=== PATIENT | male | born 1935 | race Caucasian/White ===

== ENCOUNTER 2021-12-21 18:29 | Inpatient (IN) | payer OTHER ==
[~2021-12-21] VITALS: Ht 172.7 cm; Wt 90.7 kg
[2021-12-21 19:24] LABS: Hematocrit 44.8 % (37.0-53.0); Hemoglobin 15.1 g/dL (13.5-17.5); Mean Corpuscular HGB 32.4 pg (26.0-34.0); Mean Corpuscular HGB Conc 33.7 g/dL (31.5-36.5); Mean Corpuscular Volume 96 fL (80-100); Mean Platelet Volume 9.7 fL (9.1-12.4); Platelet Count 234 K/mm3 (150-400); RDW Coefficient Variation 12.6 % (11.7-14.2); RDW Standard Deviation 44.4 fL (35.1-46.3); Red Blood Cell Count 4.66 M/mm3 (4.30-5.90); White Blood Cell Count 23.12 K/mm3 (4.00-11.30)
[2021-12-21 19:45] LABS: Alanine Aminotransfer (ALT/SGP 49 U/L (12-78); Albumin, Blood 3.6 g/dL (3.4-5.0); Alk Phos 179 U/L (50-136); Anion Gap 4 mmol/L (6-16); Aspartate Aminotrans (AST/SGOT 39 U/L (12-37); Bilirubin, Total 1.7 mg/dL (0.1-1.0); Blood Urea Nitrogen 22 mg/dL (8-24); Bun/Creatinine Ratio 22.1 (12.0-20.0); CO2, Blood 27 mmol/L (21-32); Calcium, Blood 9.5 mg/dL (8.5-10.1); Chloride, Blood 103 mmol/L (98-108); Globulin, Blood 3.6 g/dL (2.2-4.0); Glomerular Filtration Rate >60 (60-); Glucose, Blood 124 mg/dL (70-99); Potassium, Blood 4.6 mmol/L (3.5-5.5); Sodium, Blood 134 mmol/L (136-145); Total Protein, Blood 7.2 g/dL (6.4-8.2)
[2021-12-21 21:24] LABS: Source, Urine Clean Catch
[2021-12-21 21:25] LABS: BASOPHILS PERCENT MAN 0 % (0-2); EOSINOPHILS ABSOLUTE MAN 0.46 K/mm3 (0.00-0.68); EOSINOPHILS PERCENT MAN 2 % (0-6); LYMPHOCYTES % ATYPICAL MANUAL 4 % (0-0); LYMPHOCYTES ABSOLUTE MAN 12.71 K/mm3 (0.84-5.20); LYMPHOCYTES PERCENT MAN 51 % (21-46); MONOCYTES ABSOLUTE MAN 1.61 K/mm3 (0.16-1.47); MONOCYTES PERCENT MAN 7 % (4-13); NEUTROPHILS ABSOLUTE MAN 8.32 K/mm3 (1.96-9.15); SEG NEUTROPHILS PERCENT MAN 36 % (41-73); TOTAL CELLS COUNTED 100
[2021-12-21 21:26] LABS: Appearance, Urine Clear (Clear); Bilirubin, Urine Neg (Neg); Blood, Urine 1+ (Neg); Glucose Qualitative, Urine Neg (Neg); Ketones, Urine 2+ (Neg); Leukocyte Esterase, Urine Neg (Neg); Nitrite, Urine Neg (Neg); Protein, Urine 2+ (Neg); Urobilinogen, Urine 1+ (Normal)
[2021-12-21 21:53] LABS: Influenza A, PCR NEGATIVE (NEGATIVE); Influenza B, PCR NEGATIVE (NEGATIVE); Resp Syncytial Virus, PCR NEGATIVE (NEGATIVE); SARS-Cov-2 (COVID-19) PCR, MMC NEGATIVE (NEGATIVE)
[2021-12-21 22:06] LABS: Color, Urine Yellow (P-Yellow)
[2021-12-21 22:07] LABS: Bacteria Rare /hpf; Squamous Epithelial Cells Rare /hpf (Few); White Blood Cells, Urine 0-2 /hpf (0-5)
[2021-12-22] MEDS ORDERED: LOSARTAN-HCTZ1 EAC3 PO (01:37)
--- NOTE | 2021-12-22 02:24 | NUR ---
ADMISSION: PATIENT ARRIVED TO FLOOR @ 0115, ABLE TO TRANSFER FROM [facility] TO BED. SBA TO BR. STEADY AMBULATION, BUT HAS GENERAL WEAKNESS. ANSWERED ALL QUESTIONS APPROPRIATELY. TELE: SR/84. COVID - WAS GOING TO GO HOME, BUT HAD CX PAIN, TACHYCARDIA IN ED--RESOLVED. BED IS IN LOWEST POSITION, ALARM IS SET AND CALL LIGHT IS WITHIN REACH.
--- NOTE | 2021-12-22 06:08 | NUR ---
SHIFT SUMMARY: PT IS A/OX4. SINCE HIS ADMIT AT 0115, HE WAS ABLE TO REST AND DID NOT HAVE ANY COMPLAINTS. D/T HIS GENERAL WEAKNESS, WE AGREED TO KEEP AN ALARM SET OTHEWISE HE IS STEADY ON HIS FEET. NO OTHER CHANGES TO REPORT AND WE'LL CONTINUE TO MONITOR.
[2021-12-22 08:56] LABS: Hematocrit 40.6 % (37.0-53.0); Hemoglobin 13.6 g/dL (13.5-17.5); Mean Corpuscular HGB 32.5 pg (26.0-34.0); Mean Corpuscular HGB Conc 33.5 g/dL (31.5-36.5); Mean Corpuscular Volume 97 fL (80-100); Mean Platelet Volume 10.4 fL (9.1-12.4); Platelet Count 214 K/mm3 (150-400); RDW Coefficient Variation 12.6 % (11.7-14.2); RDW Standard Deviation 45.1 fL (35.1-46.3); Red Blood Cell Count 4.19 M/mm3 (4.30-5.90); White Blood Cell Count 21.01 K/mm3 (4.00-11.30)
[2021-12-22 09:18] LABS: Alanine Aminotransfer (ALT/SGP 37 U/L (12-78); Albumin/Globulin Ratio 0.9 (0.8-1.8); Alk Phos 163 U/L (50-136); Anion Gap 7 mmol/L (6-16); Aspartate Aminotrans (AST/SGOT 26 U/L (12-37); Bilirubin, Total 1.1 mg/dL (0.1-1.0); Blood Urea Nitrogen 20 mg/dL (8-24); Bun/Creatinine Ratio 19.4 (12.0-20.0); CO2, Blood 26 mmol/L (21-32); Calcium, Blood 8.8 mg/dL (8.5-10.1); Chloride, Blood 106 mmol/L (98-108); Creatinine, Blood 1.03 mg/dL (0.60-1.20); Globulin, Blood 3.5 g/dL (2.2-4.0); Glomerular Filtration Rate >60 (60-); Glucose, Blood 111 mg/dL (70-99); Potassium, Blood 3.8 mmol/L (3.5-5.5); Sodium, Blood 139 mmol/L (136-145); Total Protein, Blood 6.5 g/dL (6.4-8.2)
[2021-12-22 09:26] LABS: CPK Creatine Kinase 41 U/L (39-308)
[2021-12-22 10:28] LABS: BAND PERCENT MAN 3 % (0-8); BASOPHILS ABSOLUTE MAN 0.21 K/mm3 (0.00-0.23); BASOPHILS PERCENT MAN 1 % (0-2); EOSINOPHILS ABSOLUTE MAN 0.21 K/mm3 (0.00-0.68); EOSINOPHILS PERCENT MAN 1 % (0-6); LYMPHOCYTES ABSOLUTE MAN 10.71 K/mm3 (0.84-5.20); LYMPHOCYTES PERCENT MAN 51 % (21-46); MONOCYTES ABSOLUTE MAN 1.68 K/mm3 (0.16-1.47); MONOCYTES PERCENT MAN 8 % (4-13); NEUTROPHILS ABSOLUTE MAN 8.19 K/mm3 (1.96-9.15); SEG NEUTROPHILS PERCENT MAN 36 % (41-73); TOTAL CELLS COUNTED 100
--- NOTE | 2021-12-22 10:51 | NUR ---
Echocardiogram completed.
[2021-12-22 15:42] LABS: CPK Creatine Kinase 38 U/L (39-308)
--- NOTE | 2021-12-22 17:31 | NUR ---
DAY SHIFT SUMMARY 86 YR OLD MALE ADMITTED FOR PNEUMONIA. NO ACUTE CHANGES THIS SHIFT. PT IS RA, INDEPENDENT IN ROOM, A/O X4. CALL LIGHT IN REACH AND ABLE TO CALL APPROPRIATELY.
--- NOTE | 2021-12-23 06:22 | NUR ---
SHIFT SUMMARY: PT IS A/OX4. INDEPENDENT IN ROOM AND USES HIS CALL LIGHT FOR NEEDS. TELE: SR/78. IV ABX (AZITHRO/ROCEPHIN) WERE CHANGED TO PO LEVAQUIN. PT DID NOT HAVE ANY COMPLAINTS THIS SHIFT. WE'LL CONTINUE TO MONITOR THE REMAINDER OF THIS SHIFT.
[2021-12-23 08:18] LABS: Hematocrit 40.1 % (37.0-53.0); Hemoglobin 13.5 g/dL (13.5-17.5); Mean Corpuscular HGB 32.4 pg (26.0-34.0); Mean Corpuscular HGB Conc 33.7 g/dL (31.5-36.5); Mean Corpuscular Volume 96 fL (80-100); Mean Platelet Volume 9.6 fL (9.1-12.4); Platelet Count 220 K/mm3 (150-400); RDW Coefficient Variation 12.6 % (11.7-14.2); RDW Standard Deviation 44.4 fL (35.1-46.3); Red Blood Cell Count 4.17 M/mm3 (4.30-5.90); White Blood Cell Count 23.07 K/mm3 (4.00-11.30)
[2021-12-23 09:27] LABS: BAND PERCENT MAN 1 % (0-8); BASOPHILS PERCENT MAN 0 % (0-2); EOSINOPHILS PERCENT MAN 0 % (0-6); LYMPHOCYTES ABSOLUTE MAN 10.38 K/mm3 (0.84-5.20); LYMPHOCYTES PERCENT MAN 45 % (21-46); MONOCYTES PERCENT MAN 10 % (4-13); NEUTROPHILS ABSOLUTE MAN 10.38 K/mm3 (1.96-9.15); SEG NEUTROPHILS PERCENT MAN 44 % (41-73); TOTAL CELLS COUNTED 100
[2021-12-23] MEDS ORDERED: ASPI325 PO (11:29)
[2021-12-23] MEDS ORDERED: LEVOFLOXACIN750 MG PO (11:29)
[2021-12-23] MEDS ORDERED: VISBIOME 112.51 EACH PO (11:30)
[2021-12-23] MEDS ORDERED: ALBU8HFA2 INH (11:31)
[2021-12-23] MEDS ORDERED: GUAI600T33 PO (11:31)
--- NOTE | 2021-12-23 16:02 | NUR ---
DISCHARGE SUMMARY PT DISCHARGED HOME WITH . IV AND TELE REMOVED PRIOR TO DISCHARGE. DISCHARGE EDUCATION REVIEWED WITH AND SIGNED BY PATIENT. MEDS FAXED INTO PHARMACY. PT TRANSPORTED VIA WHEELCHAIR DOWNSTAIRS TO VEHICLE WITH AND ALONG WITH PERSONAL BELONGINGS.
== END 2021-12-23 13:15 | disposition home or self-care (01) | DRG 871 ==
LOC: ER 18:29 → MEDS 18:30
PROVIDERS: Internal Medicine; Physician Assistant; ADMIT Internal Medicine
DX: A41.9 Sepsis, unspecified organism (principal); J18.9 Pneumonia, unspecified organism; I20.0 Unstable angina; C91.10 Chronic lymphocytic leukemia of B-cell type not having achieved remission; Z20.822 Contact with and (suspected) exposure to COVID-19; I10 Essential (primary) hypertension; Z66 Do not resuscitate; R07.9 Chest pain, unspecified; R53.1 Weakness
CPT/HCPCS: 0241U; 36415; 71045; 80053; 81001; 82550; 83605; 83880; 84484; 85025; 87070; 87205; 93005; 93010; 93306; 94760; 96365; 96366; 96375; 99285-25; A9270; G0378; J0456; J0696; J1200; J1650; J7030; J7050

== ENCOUNTER 2022-04-29 18:25 | Observation (INO) | payer OTHER ==
[~2022-04-29] VITALS: Ht 177.8 cm; Wt 88.5 kg
[~2022-04-29 18:25] MED LIST: ALBU8HFA2 INH; ASPI325 PO; GUAI600T33 PO; LEVOFLOXACIN750 MG PO; LOSARTAN-HCTZ1 EAC3 PO; VISBIOME 112.51 EACH PO
[2022-04-29 19:08] LABS: Hematocrit 44.3 % (37.0-53.0); Hemoglobin 15.3 g/dL (13.5-17.5); Mean Corpuscular HGB 32.6 pg (26.0-34.0); Mean Corpuscular HGB Conc 34.5 g/dL (31.5-36.5); Mean Corpuscular Volume 94 fL (80-100); Mean Platelet Volume 9.5 fL (9.1-12.4); NRBC ABSOLUTE 0.03 K/mm3 (0.00-0.02); NRBC Auto 0.1 /100 WBC (0.0-0.2); Platelet Count 179 K/mm3 (150-400); RDW Coefficient Variation 12.4 % (11.7-14.2); RDW Standard Deviation 43.1 fL (35.1-46.3); White Blood Cell Count 23.63 K/mm3 (4.00-11.30)
[2022-04-29 19:21] LABS: Albumin, Blood 3.9 g/dL (3.4-5.0); Albumin/Globulin Ratio 1.4 (0.8-1.8); Bilirubin, Total 0.5 mg/dL (0.1-1.0); Bun/Creatinine Ratio 21.6 (12.0-20.0); Calcium, Blood 9.4 mg/dL (8.5-10.1); Creatinine, Blood 1.02 mg/dL (0.60-1.20); Globulin, Blood 2.7 g/dL (2.2-4.0); Potassium, Blood 4.4 mmol/L (3.5-5.5); Total Protein, Blood 6.6 g/dL (6.4-8.2)
[2022-04-29 20:14] LABS: BASOPHILS PERCENT MAN 0 % (0-2); EOSINOPHILS ABSOLUTE MAN 0.23 K/mm3 (0.00-0.68); EOSINOPHILS PERCENT MAN 1 % (0-6); LYMPHOCYTES PERCENT MAN 54 % (21-46); MONOCYTES ABSOLUTE MAN 0.94 K/mm3 (0.16-1.47); MONOCYTES PERCENT MAN 4 % (4-13); NEUTROPHILS ABSOLUTE MAN 3.54 K/mm3 (1.96-9.15); SEG NEUTROPHILS PERCENT MAN 15 % (41-73); TOTAL CELLS COUNTED 100
[2022-04-29 20:17] LABS: LYMPHOCYTES % ATYPICAL MANUAL 26 % (0-0)
--- NOTE | 2022-04-30 05:59 | NUR ---
NOC SHIFT SUMMARY PT ARRIVED TO FLOOR FROM ED AND MOVED TO BED INDEPENDENTLY. VS OBTAINED, WNL. LAC IV FLUSHED AND PATENT. NO COMPLAINTS OF PAIN OR DISCOMFORT. ORIENTED X4, CALM AND COOPERATIVE. TELEMETRY CONFIRMED W/RE ETCHER. SR OVERNIGHT. PT UP SBA TO BATHROOM. VOIDING WITHOUT DIFFICULTY. NO SIGNIFICANT EVENTS OVERNIGHT. WILL CONTINUE TO MONITOR AND PASS ON TO DAY RN
--- NOTE | 2022-04-30 08:00 | NUR ---
PT PLEASANT COOP, A/O X3 DENIES CHEST PAIN, PRESSURE, SOB. ON R/A. H/R REG, NO MURMUR NOTED. PER TELE. NSR AT 66, LUNGS CLEAR, RESP EASY, UNLABORED. ON R.A. BT X4 LAST BM YEST PER PT. VOIDS INDEPENDANT TO SBA TO BATHROOM. BED IN LOW POSITION, CLL LITE IN REACH, CALLS APPROP
[2022-04-30] MEDS ORDERED: ASPI81CH PO (14:16)
[2022-04-30] MEDS ORDERED: PANT40 PO (14:17)
--- NOTE | 2022-04-30 15:06 | NUR ---
discharge reviewed by pt and spouse. iv pulled by aide. tele removed by aide. pt verbalized understanding meds and inst. pt wheeled to door by aide at 1506
== END 2022-04-30 15:06 | disposition home or self-care (01) ==
LOC: ER 18:25 → MEDS 18:26
PROVIDERS: Emergency Medicine; ADMIT Internal Medicine
DX: R07.89 Other chest pain (principal); C91.10 Chronic lymphocytic leukemia of B-cell type not having achieved remission; I10 Essential (primary) hypertension; Z82.49 Family history of ischemic heart disease and other diseases of the circulatory system; Z86.73 Personal history of transient ischemic attack (TIA), and cerebral infarction without residual deficits; Z88.0 Allergy status to penicillin; Z88.5 Allergy status to narcotic agent
CPT/HCPCS: 36415; 71046; 78452; 80053; 83880; 84484; 85025; 85379; 93005; 93010; 93017; 93308; 93321; 96372; 99285-25; A9500; G0378; J0706; J1650; J2785

== ENCOUNTER → 2023-01-12 | Outpatient (CLI) | payer OTHER ==
[~2023-01-12] MED LIST changes: +ASPI81CH PO; +PANT40 PO
== END ==
LOC: LAB SHORT 07:51 → PLD 07:51
DX: D23.62 Other benign neoplasm of skin of left upper limb, including shoulder (principal)
CPT/HCPCS: 88305

== ENCOUNTER → 2023-08-11 | Outpatient (CLI) | payer OTHER | END | disposition home or self-care (01) | LOC: LAB SHORT 12:21 → LAB 12:21 | DX: K55.019 Acute (reversible) ischemia of small intestine, extent unspecified (principal) | CPT/HCPCS: 83605 ==

== ENCOUNTER 2024-01-12 10:10 | Inpatient (IN) | payer OTHER ==
[~2024-01-12] VITALS: Ht 175.3 cm; Wt 89.0 kg
[2024-01-12] VITALS (10 sets, daily range): BP systolic 110–138; BP diastolic 67–90
[~2024-01-12 10:10] MED LIST changes: -ATOR40TA PO; -Aspir 8181 MG PO; -CLOP75 PO; -NITR.4SL SL
[2024-01-12] MEDS ORDERED: Aspirin 325 MG Tab PO ONE (10:45)
[2024-01-12] MEDS ORDERED: Nitroglycerin Patch 0.4 MG / HR TOP ONE (10:45)
[2024-01-12] MEDS ORDERED: NS 1,000 ML IV SCH (11:35)
[2024-01-12] MEDS ORDERED: Aspirin 81 MG Chew PO ONE (11:35)
[2024-01-12] MEDS ORDERED: Nitroglycerin 0.4 MG SUBL SL PRN (11:35)
[2024-01-12] MEDS ORDERED: HydrALAZINE HCl 20 MG / ML 1ML Vial IV PRN (11:35)
[2024-01-12 11:40] LABS: Anti-Xa UFH, PHA Monitoring <0.10 IU/mL; International Normalized Ratio 0.97; Prothrombin Time Results 10.4 Sec (9.7-11.5)
[2024-01-12] MEDS ORDERED: Dose Adjust by Pharmacy XX STA (11:47)
[2024-01-12] MEDS ORDERED: Heparin Sodium 5000 Units/ML 1ML MDV IV ONE (11:50)
[2024-01-12] MEDS ORDERED: Heparin Sodium,Porcine/0.5 NS 500 ML IV SCH (11:50)
[2024-01-12] MEDS ORDERED: Heparin Sodium 1000 Units/ML 10ML MDV ONE (13:03)
[2024-01-12] MEDS ORDERED: NS 1,000 ML IV ONE ×2 (13:04→13:06)
[2024-01-12] MEDS ORDERED: Nitroglycerin 2 MG/20 ML BTL ONE (13:04)
[2024-01-12] MEDS ORDERED: NS 250 ML IV ONE (13:04)
[2024-01-12] MEDS ORDERED: NiCARdipine HCL 1,000 MCG/5 ML SYR ONE (13:04)
[2024-01-12] MEDS ORDERED: FentaNYL Citrate 50 MCG/ML 2 ML Injection ONE ×2 (13:05→14:52)
[2024-01-12] MEDS ORDERED: Midazolam HCl 1MG / ML 2ML Vial ONE (13:06)
[2024-01-12] MEDS ORDERED: ASPI325 PO (13:11)
--- NOTE | 2024-01-12 14:11 | NUR ---
PT ARRIVED TO U 06 ABOUT 1300. HE WAS TAKEN TO THE [employer] ABOUT 1330. VS WERE STABLE ON TX TO THE ROOM, HEPARIN GTT WAS STOPPED FOR THE PROCEDURE, AND HIS WAS AT THE BEDSIDE. ON TELE THE PT WAS SR 60'S-70'S W/ PAC, PVCS, AND FHB. HIS ANGINA AND SOB WERE ABSENT. AWAITING FOR PT TO RETURN BACK TO THE ROOM FROM THE [employer] FOR FURTHER ASSESSMENT.
[2024-01-12] MEDS ORDERED: Atropine Sulfate 0.1 MG/ML 10ML SYR ONE (14:46)
[2024-01-12] MEDS ORDERED: Clopidogrel Bisulfate 300 MG Cap ONE (15:00)
--- NOTE | 2024-01-12 17:20 | NUR ---
SHIFT SUMMARY PT IS A NEW ADMIT AND HAD AN ANGIO TODAY. HE RECIEVED ONE STENT TO THE RCA. THEY ACCESSED THE PT'S RIGHT WRIST AND RIGHT GROIN. SITE ARE W/O HEMATOMA, BLEEDING, N/T, AND DRESSINGS/TRBAND ARE INTACT. PER DR. DALEY THE PT NEEDS TO LAY FLAT UNTIL 1930. THE TR BAND CAN START TO BE RECOVERED AT 1730. THE PT'S VITAL SIGNS REMAIN STABLE. HE IS ON RA AND SP02 >93%. ON TELE HE IS SR 60'S W/ PAC'S, PVC'S, AND A FHB. HIS , DAUGHTER, AND SON IN LAW WERE AT BEDSIDE AND HAVE BEEN UPDATED ON CARE. SEE NOTES FOR MORE UPDATES.
[2024-01-12] MEDS ORDERED: Atorvastatin 40 MG Tab PO SCH (21:00)
[2024-01-13 00:07] VITALS: BP 118/67
[2024-01-13 03:56] VITALS: BP 118/69
[2024-01-13 04:24] LABS: Hematocrit 39.5 % (37.0-53.0); Hemoglobin 13.1 g/dL (13.5-17.5); Mean Corpuscular HGB 33.6 pg (26.0-34.0); Mean Corpuscular HGB Conc 33.2 g/dL (31.5-36.5); Mean Corpuscular Volume 101 fL (80-100); Mean Platelet Volume 9.8 fL (9.1-12.4); Platelet Count 140 K/mm3 (150-400); RDW Coefficient Variation 13.5 % (11.7-14.2); RDW Standard Deviation 49.7 fL (35.1-46.3); White Blood Cell Count 32.12 K/mm3 (4.00-11.30)
[2024-01-13 04:56] LABS: Alanine Aminotransfer (ALT/SGP 22 U/L (12-78); Albumin, Blood 3.4 g/dL (3.4-5.0); Albumin/Globulin Ratio 1.5 (0.8-1.8); Alk Phos 109 U/L (50-136); Anion Gap 8 mmol/L (3-11); Aspartate Aminotrans (AST/SGOT 25 U/L (12-37); Bilirubin, Total 0.6 mg/dL (0.1-1.0); Blood Urea Nitrogen 18 mg/dL (8-24); Bun/Creatinine Ratio 18.2 (12.0-20.0); CHOL/HDL RATIO 4.4; CO2, Blood 27 mmol/L (21-32); Calcium, Blood 8.7 mg/dL (8.5-10.1); Chloride, Blood 109 mmol/L (98-108); Cholesterol 132 mg/dL (50-200); Creatinine, Blood 0.99 mg/dL (0.60-1.20); Globulin, Blood 2.2 g/dL (2.2-4.0); Glomerular Filtration Rate 74 (60-); Glucose, Blood 127 mg/dL (70-99); HDL Cholesterol 30 mg/dL (>39); LDL/HDL RATIO 2.4; Low Density Lipoprotein Chol 73 mg/dL (0-110); Potassium, Blood 3.9 mmol/L (3.5-5.5); Sodium, Blood 140 mmol/L (136-145); Total Protein, Blood 5.6 g/dL (6.4-8.2); Triglycerides 146 mg/dL (30-160); Very Low Density Lipoprot Chol 29 mg/dL (6-32)
--- NOTE | 2024-01-13 05:40 | NUR ---
SHIFT SUMMARY ASSUMED CARE OF PT AT 1900. PT ALERT & ORIENTED x4, COOPERATIVE WITH CARES, CALL LIGHT APPROPRIATE. TR BAND RECOVERED AT 2159, PT TOLERATED WELL, SITE IS WITHOUT COMPLICATION. PT REMAINS HEMODYNAMICALLY STABLE. DENIES CHEST PAIN, PALPITATIONS THIS SHIFT. SP02 > 90% ON RA. AFEBRILE THIS SHIFT. EKG THIS AM IS IN PT CHART. NO ACUTE EVENTS OVERNIGHT.
[2024-01-13 06:12] LABS: BASOPHILS PERCENT MAN 0 % (0-2); EOSINOPHILS ABSOLUTE MAN 0.96 K/mm3 (0.00-0.68); EOSINOPHILS PERCENT MAN 3 % (0-6); LYMPHOCYTES % ATYPICAL MANUAL 7 % (0-0); LYMPHOCYTES ABSOLUTE MAN 21.52 K/mm3 (0.84-5.20); LYMPHOCYTES PERCENT MAN 60 % (21-46); MONOCYTES ABSOLUTE MAN 0.96 K/mm3 (0.16-1.47); MONOCYTES PERCENT MAN 3 % (4-13); NEUTROPHILS ABSOLUTE MAN 8.67 K/mm3 (1.96-9.15); SEG NEUTROPHILS PERCENT MAN 27 % (41-73); TOTAL CELLS COUNTED 100
[2024-01-13 07:46] VITALS: BP 133/70
[2024-01-13] MEDS ORDERED: Clopidogrel Bisulfate 75 MG Tab PO SCH (09:00)
[2024-01-13] MEDS ORDERED: Aspirin 81 MG TabEC PO SCH (09:00)
[2024-01-13] MEDS ORDERED: CLOP75 PO (10:29)
[2024-01-13] MEDS ORDERED: Aspir 8181 MG PO (10:29)
[2024-01-13] MEDS ORDERED: ATOR40TA PO (10:29)
[2024-01-13] MEDS ORDERED: NITR.4SL SL (10:30)
--- NOTE | 2024-01-13 11:07 | NUR ---
PT IS A&OX4, CALLS APPROPRIATELY, AND CAN MAKE HIS NEEDS KNOWN. THE PT HAD AN ANGIO 01/11 AND HAD HIS RIGHT WRIST AND GROIN ACCESSED. BOTH SITE HAVE THERI DRESSING INTACT, AND ARE W/O HEMATOMA, BLEEDS, SIGNS OF INFECTION, OR PAIN. THE PT HAS BEEN ON RA W/ SP02 >90%. HE WILL BE DISCHARGING TODAY AND FOLLOW UP WITH CARDIOLOGY IN A FEW WEEKS. SEE NOTES FOR UPDATES.
[2024-01-13 11:15] VITALS: BP 146/75
--- NOTE | 2024-01-13 11:31 | NUR ---
D/C SUMMARY PT'S MEDICATIONS FAXED TO [facility]. I WENT OVER EDUCATION WITH THE PT AND HIS . ALL QUESTIONS WERE ANSWERED. IV'S WERE D/C'D BY THE STRETCHER AND DRIER. VS STABLE AND ANGIOSITES REMAIN WNL. NO FURTHER NOTES FROM THIS NURSE. PT D/C'D AT 1130.
== END 2024-01-13 11:33 | disposition home or self-care (01) | DRG 322 ==
LOC: ER 10:10 → PCU 11:54
PROVIDERS: Emergency Medicine; Internal Medicine Cardiovascular Disease; ADMIT Family Medicine
PROC: 027034Z Dilation of Coronary Artery, One Artery with Drug-eluting Intraluminal Device, Percutaneous Approach (ICD-10-PCS; principal; 2024-01-12)
PROC: B2111ZZ Fluoroscopy of Multiple Coronary Arteries using Low Osmolar Contrast (ICD-10-PCS; 2024-01-12)
PROC: 4A023N7 Measurement of Cardiac Sampling and Pressure, Left Heart, Percutaneous Approach (ICD-10-PCS; 2024-01-12)
PROC: B241ZZ3 Ultrasonography of Multiple Coronary Arteries, Intravascular (ICD-10-PCS; 2024-01-12)
DX: I21.4 Non-ST elevation (NSTEMI) myocardial infarction (principal); C91.10 Chronic lymphocytic leukemia of B-cell type not having achieved remission; I42.2 Other hypertrophic cardiomyopathy; Z88.0 Allergy status to penicillin; Z88.5 Allergy status to narcotic agent; Z79.82 Long term (current) use of aspirin; Z96.659 Presence of unspecified artificial knee joint; Z90.49 Acquired absence of other specified parts of digestive tract; Z66 Do not resuscitate; Z79.899 Other long term (current) drug therapy; I48.0 Paroxysmal atrial fibrillation; E66.9 Obesity, unspecified; Z68.29 Body mass index [BMI] 29.0-29.9, adult; R09.89 Other specified symptoms and signs involving the circulatory and respiratory systems; J98.8 Other specified respiratory disorders; M19.012 Primary osteoarthritis, left shoulder; M19.011 Primary osteoarthritis, right shoulder; S22.41XD Multiple fractures of ribs, right side, subsequent encounter for fracture with routine healing; I70.0 Atherosclerosis of aorta
CPT/HCPCS: 36415; 71045; 71046; 76937; 80053; 80061; 84484; 85025; 85347; 85520; 85610; 85730; 92978; 93005; 93010; 93306; 93454; 96365-59; 96376-59; 99152; 99153; 99285-25; A9270; C1725; C1753; C1760; C1769; C1874; C1887; C1894; C9600; J0461; J1644; J2250; J3010; J7030; J7050; Q9967

== ENCOUNTER → 2024-01-12 | Outpatient (CLI) | payer OTHER ==
[~2024-01-12] MED LIST changes: +ATOR40TA PO; +Aspir 8181 MG PO; +CLOP75 PO; +NITR.4SL SL
[2024-01-12 09:24] LABS: Hematocrit 44.5 % (37.0-53.0); Hemoglobin 14.7 g/dL (13.5-17.5); Mean Corpuscular HGB 33.7 pg (26.0-34.0); Mean Corpuscular Volume 102 fL (80-100); Mean Platelet Volume 10.1 fL (9.1-12.4); Platelet Count 170 K/mm3 (150-400); RDW Coefficient Variation 13.4 % (11.7-14.2); RDW Standard Deviation 49.7 fL (35.1-46.3); Red Blood Cell Count 4.36 M/mm3 (4.30-5.90); White Blood Cell Count 45.17 K/mm3 (4.00-11.30)
[2024-01-12 09:40] LABS: Albumin/Globulin Ratio 1.4 (0.8-1.8); Bilirubin, Total 0.7 mg/dL (0.1-1.0); Bun/Creatinine Ratio 14.4 (12.0-20.0); Calcium, Blood 9.1 mg/dL (8.5-10.1); Creatinine, Blood 1.25 mg/dL (0.60-1.20); Globulin, Blood 2.8 g/dL (2.2-4.0); Potassium, Blood 4.4 mmol/L (3.5-5.5); Total Protein, Blood 6.8 g/dL (6.4-8.2)
[2024-01-12 10:36] LABS: BASOPHILS PERCENT MAN 0 % (0-2); EOSINOPHILS PERCENT MAN 0 % (0-6); LYMPHOCYTES % ATYPICAL MANUAL 40 % (0-0); LYMPHOCYTES ABSOLUTE MAN 37.49 K/mm3 (0.84-5.20); LYMPHOCYTES PERCENT MAN 43 % (21-46); MONOCYTES PERCENT MAN 0 % (4-13); NEUTROPHILS ABSOLUTE MAN 7.67 K/mm3 (1.96-9.15); SEG NEUTROPHILS PERCENT MAN 17 % (41-73); TOTAL CELLS COUNTED 100
== END ==
LOC: LAB SHORT 09:18
PROVIDERS: Chiropractor
DX: R07.89 Other chest pain (principal); R35.0 Frequency of micturition
CPT/HCPCS: 80053; 84484; 85025; 85379; 87086

== ENCOUNTER → 2025-01-22 | Outpatient (CLI) | payer OTHER ==
[~2025-01-22] MED LIST changes: +ATOR40TA PO; +Aspir 8181 MG PO; +CLOP75 PO; +NITR.4SL SL
[2025-01-22 12:30] LABS: BASOPHILS ABSOLUTE AUTO 0.12 K/mm3 (0.00-0.23); BASOPHILS PERCENT AUTO 1 % (0-2); EOSINOPHILS ABSOLUTE AUTO 0.39 K/mm3 (0.00-0.68); EOSINOPHILS PERCENT AUTO 4 % (0-6); Hematocrit 37.2 % (37.0-53.0); Hemoglobin 12.3 g/dL (13.5-17.5); IMMATURE GRAN ABSOLUTE AUTO 0.04 K/mm3 (0.00-0.10); IMMATURE GRAN PERCENT AUTO 0 % (0-1); LYMPHOCYTES ABSOLUTE AUTO 2.57 K/mm3 (0.84-5.20); LYMPHOCYTES PERCENT AUTO 25 % (21-46); MONOCYTES ABSOLUTE AUTO 0.87 K/mm3 (0.16-1.47); MONOCYTES PERCENT AUTO 8 % (4-13); Mean Corpuscular HGB 31.1 pg (26.0-34.0); Mean Corpuscular HGB Conc 33.1 g/dL (31.5-36.5); Mean Corpuscular Volume 94 fL (80-100); Mean Platelet Volume 9.7 fL (9.1-12.4); NEUTROPHILS ABSOLUTE AUTO 6.52 K/mm3 (1.96-9.15); NEUTROPHILS PERCENT AUTO 62 % (41-73); Platelet Count 208 K/mm3 (150-400); RDW Coefficient Variation 14.2 % (11.7-14.2); RDW Standard Deviation 49.1 fL (35.1-46.3); Red Blood Cell Count 3.96 M/mm3 (4.30-5.90); White Blood Cell Count 10.51 K/mm3 (4.00-11.30)
[2025-01-22 12:42] LABS: Albumin, Blood 3.6 g/dL (3.4-5.0); Albumin/Globulin Ratio 1.2 (0.8-1.8); Bilirubin, Total 0.7 mg/dL (0.1-1.0); Bun/Creatinine Ratio 15.7 (12.0-20.0); Calcium, Blood 8.8 mg/dL (8.5-10.1); Creatinine, Blood 1.21 mg/dL (0.60-1.20); Globulin, Blood 2.9 g/dL (2.2-4.0); Potassium, Blood 4.3 mmol/L (3.5-5.5); Total Protein, Blood 6.5 g/dL (6.4-8.2)
== END ==
LOC: LAB 12:26 → LAB SHORT 12:26
PROVIDERS: Physician Assistant
DX: R10.31 Right lower quadrant pain (principal)
CPT/HCPCS: 80053; 83690; 85025

== ENCOUNTER → 2025-01-25 | Outpatient (CLI) | payer OTHER ==
[2025-01-25 14:15] LABS: BASOPHILS ABSOLUTE AUTO 0.11 K/mm3 (0.00-0.23); BASOPHILS PERCENT AUTO 1 % (0-2); EOSINOPHILS ABSOLUTE AUTO 0.37 K/mm3 (0.00-0.68); EOSINOPHILS PERCENT AUTO 4 % (0-6); Hematocrit 38.8 % (37.0-53.0); Hemoglobin 12.9 g/dL (13.5-17.5); IMMATURE GRAN ABSOLUTE AUTO 0.04 K/mm3 (0.00-0.10); IMMATURE GRAN PERCENT AUTO 0 % (0-1); LYMPHOCYTES ABSOLUTE AUTO 2.78 K/mm3 (0.84-5.20); LYMPHOCYTES PERCENT AUTO 29 % (21-46); MONOCYTES ABSOLUTE AUTO 0.65 K/mm3 (0.16-1.47); MONOCYTES PERCENT AUTO 7 % (4-13); Mean Corpuscular HGB Conc 33.2 g/dL (31.5-36.5); Mean Corpuscular Volume 93 fL (80-100); Mean Platelet Volume 9.5 fL (9.1-12.4); NEUTROPHILS ABSOLUTE AUTO 5.76 K/mm3 (1.96-9.15); NEUTROPHILS PERCENT AUTO 59 % (41-73); Platelet Count 227 K/mm3 (150-400); RDW Coefficient Variation 13.9 % (11.7-14.2); RDW Standard Deviation 47.8 fL (35.1-46.3); Red Blood Cell Count 4.16 M/mm3 (4.30-5.90); White Blood Cell Count 9.71 K/mm3 (4.00-11.30)
[2025-01-25 14:27] LABS: Albumin, Blood 3.9 g/dL (3.4-5.0); Albumin/Globulin Ratio 1.3 (0.8-1.8); Bilirubin, Total 0.8 mg/dL (0.1-1.0); Bun/Creatinine Ratio 12.9 (12.0-20.0); Calcium, Blood 9.4 mg/dL (8.5-10.1); Creatinine, Blood 1.24 mg/dL (0.60-1.20); Globulin, Blood 2.9 g/dL (2.2-4.0); Potassium, Blood 4.4 mmol/L (3.5-5.5); Total Protein, Blood 6.8 g/dL (6.4-8.2)
== END ==
LOC: LAB SHORT 14:11 → LAB 14:11
DX: R10.31 Right lower quadrant pain (principal)
CPT/HCPCS: 80053; 85025

== ENCOUNTER 2025-06-12 07:49 | Day surgery (SDC) | payer OTHER ==
[~2025-06-12] VITALS: Ht 177.8 cm; Wt 195.2 kg
[~2025-06-12 07:49] MED LIST changes: +BRUKINSA80 MG PO
[2025-06-12 10:44] VITALS: BP 102/69
== END 2025-06-12 10:40 | disposition home or self-care (01) ==
LOC: ORSCSDS 07:49
PROVIDERS: Specialist
PROC: 0D758ZZ Dilation of Esophagus, Via Natural or Artificial Opening Endoscopic (ICD-10-PCS; principal; 2025-06-12 09:30)
DX: R13.10 Dysphagia, unspecified (principal); I25.10 Atherosclerotic heart disease of native coronary artery without angina pectoris; C91.11 Chronic lymphocytic leukemia of B-cell type in remission; Z79.82 Long term (current) use of aspirin; Z79.899 Other long term (current) drug therapy
CPT/HCPCS: C1769; J2704; J7120